=== PATIENT | male | born 1965 | race Caucasian/White ===

== ENCOUNTER 2017-06-19 12:52 | Inpatient (IN) | payer MEDICAID ==
[2017-06-19] MEDS ORDERED: METOPROLOL TARTRATE PF/INJ 5 MG/5 ML SDV IV ONE ×2 (13:12→17:00)
[2017-06-19 14:21] LABS: ABSOLUTE LYMPHOCYTES (AUTO) 0.8 10^3/uL (0.5-4.7); ABSOLUTE MONOCYTES (AUTO) 0.5 10^3/uL (0.1-1.4); ABSOLUTE NEUT (AUTO) 6.6 10^3/uL (1.7-8.2); BASOPHILS % (AUTO) 0.6 % (0-2); EOSINOPHILS % (AUTO) 0.1 % (0-6); HEMATOCRIT 42.2 % (37.9-51.0); HEMOGLOBIN 14.4 g/dL (13.5-17.0); MEAN CORPUSCULAR HEMOGLOBIN 31.6 pg (27.0-33.4); MEAN CORPUSCULAR VOLUME 93 fl (80-97); MONOCYTES % (AUTO) 6.7 % (3-13); RED BLOOD COUNT 4.55 10^6/uL (4.35-5.55); RED CELL DISTRIBUTION WIDTH 13.5 % (11.5-14.0); SEGMENTED NEUTROPHILS % (AUTO) 82.6 % (42-78); WHITE BLOOD COUNT 7.9 10^3/uL (4.0-10.5)
[2017-06-19] MEDS ORDERED: DILTIAZEM HCL/D5W 125 ML IV PRN ×2 (14:22→15:56)
--- NOTE | 2017-06-19 14:29 | ER Document Report ---
ED Respiratory Problem - General Chief Complaint: Shortness Of Breath Stated Complaint: SHORTNESS OF BREATH Time Seen by Provider: 06/19/17 13:00 Mode of Arrival: Medic Information source: Patient Notes: Patient is a 52 year old male with a history of A. fib, hypertension, recent pneumonias who presents to the ER today for cough 4 days with shortness of breath that began this morning. Patient's last pneumonia was in January 2017. He does have a pacemaker placed in 2010. He states that he has not taken any of his medications including metoprolol, diltiazem and Xarelto since yesterday morning. He denies any fevers or chills that he is noticed. He has no primary care provider as he just moved down here from [place]. TRAVEL OUTSIDE OF THE [place] IN LAST 30 DAYS: No - Related Data Allergies/Adverse Reactions: cyclobenzaprine Allergy (Verified 06/19/17 13:25) Past Medical History - General Information source: Patient - Social History Smoking Status: Former Smoker Patient has suicidal ideation: No Patient has homicidal ideation: No - Past Medical History Cardiac Medical History: Reports: Hx Atrial Fibrillation, Hx Congestive Heart Failure, Hx Hypertension Renal/ Medical History: Denies: Hx Peritoneal Dialysis Past Surgical History: Reports: Hx Abdominal Surgery - gastric bypass Review of Systems - Review of Systems Constitutional: No symptoms reported EENT: No symptoms reported Cardiovascular: See HPI Respiratory: See HPI Gastrointestinal: No symptoms reported Genitourinary: No symptoms reported Male Genitourinary: No symptoms reported Musculoskeletal: No symptoms reported Skin: No symptoms reported Hematologic/Lymphatic: No symptoms reported Neurological/Psychological: No symptoms reported Physical Exam - Vital signs Vitals: Resp Pulse Ox 17 96 06/19/17 12:59 06/19/17 12:59 - Notes Notes: PHYSICAL EXAMINATION: GENERAL: On oxygen, short of breath, morbidly obese, in mild acute distress. HEAD: Atraumatic, normocephalic. EYES: Pupils equal round and reactive to light, extraocular movements intact, sclera anicteric, conjunctiva are normal. NECK: Normal range of motion, supple without lymphadenopathy LUNGS: mild expiratory wheezes to left upper and lower lobes, no rales or rhonchi. HEART: Irregularly irregular, without murmurs ABDOMEN: Soft, no tenderness. No guarding, no rebound BACK: no vertebral tenderness, normal ROM GI/: no CVA tenderness EXTREMITIES: Normal range of motion, no pitting edema. No cyanosis. NEUROLOGICAL: Cranial nerves grossly intact. Normal sensory/motor exams. PSYCH: Normal mood, normal affect. SKIN: Warm, Dry, normal turgor, no rashes or lesions noted Course - Re-evaluation Re-evalutation: 06/19/17 15:21 Dose of IV metoprolol did help for a little while, pulse went down to the 120s from 150s. Patient now on diltiazem drip. X-ray does reveal left lower lobe pneumonia. Levaquin was ordered IV. Dr. Caballero, hospitalist is agreed to admit patient at this time for A. fib with RVR and pneumonia. - Vital Signs Vital signs: Temp Pulse Resp BP Pulse Ox 100.2 F 122 H 17 141/95 H 95 06/19/17 13:34 06/19/17 13:41 06/19/17 15:01 06/19/17 15:01 06/19/17 15:01 - Laboratory Result Diagrams: 06/19/17 14:00 06/19/17 14:00 Laboratory results interpreted by me: 06/19/17 06/19/17 06/19/17 14:00 14:00 14:00 Plt Count 128 L Seg Neutrophils % 82.6 H Lymphocytes % 10.0 L PT 15.7 H Sodium 133.7 L Potassium 3.5 L Glucose 137 H Total Bilirubin 1.7 H Direct Bilirubin 0.7 H AST 75 H Creatine Kinase 1372 H Albumin 3.4 L Critical Care Note - Critical Care Note Total time excluding time spent on procedures (mins): 45 - 45 minutes spent in critical care time with patient, consulted with attending, speaking with family , placing orders and evaluating tests and labs. Discharge - Discharge Clinical Impression: Atrial fibrillation with RVR Pneumonia Qualifiers: Pneumonia type: due to unspecified organism Laterality: left Lung location: lower lobe of lung Qualified Code(s): J18.1 - Lobar pneumonia, unspecified organism Condition: Stable Disposition: ADMITTED INPATIENT Admitting Provider: Hospitalist Unit Admitted: [facility]
[2017-06-19 14:35] LABS: PROTHROMBIN TIME 15.7 SEC (11.4-15.4)
--- NOTE | 2017-06-19 14:35 | RADIOLOGY REPORT (SQ) ---
EXAM DESCRIPTION: CHEST SINGLE VIEW COMPLETED DATE/TIME: 06/19/2017 1:49 pm REASON FOR STUDY: bed 15 sepsis protocol COMPARISON: None. EXAM PARAMETERS: NUMBER OF VIEWS: One view. TECHNIQUE: Single frontal radiographic view of the chest acquired. RADIATION DOSE: NA LIMITATIONS: Patient has made a shallow inspiration. FINDINGS: LUNGS AND PLEURA: Patchy increased density is identified in the left lower lung field cons istent with a patchy pneumonic infiltrate. Remaining lung cabral are clear. No pleural effusions ar e identified. MEDIASTINUM AND HILAR STRUCTURES: No masses. Contour normal. HEART AND VASCULAR STRUCTURES: Cardiac silhouette appears mildly enlarged. BONES: No acute findings. HARDWARE: Single chamber transvenous pacemaker is identified. OTHER: No other significant finding. IMPRESSION: Patchy increased density in the left lower lung field consistent with a patchy pneumonic infiltrate. Remaining lung cabral are clear. Other findings as noted above TECHNICAL DOCUMENTATION: JOB ID: [id number]
[2017-06-19] MEDS ORDERED: ALBUTEROL SULFATE 0.083% NEB 2.5 MG/3 ML AMPUL NEB ONE (14:40)
[2017-06-19 14:41] LABS: ALANINE AMINOTRANSFERASE 42 U/L (21-72); ALBUMIN 3.4 g/dL (3.5-5.0); ALKALINE PHOSPHATASE 57 U/L (38-126); ANION GAP 13 (5-19); ASPARTATE AMINO TRANSFERASE 75 U/L (17-59); BILIRUBIN,DIRECT 0.7 mg/dL (0.0-0.4); BILIRUBIN,TOTAL 1.7 mg/dL (0.2-1.3); BLOOD UREA NITROGEN 14 mg/dL (7-20); CALCIUM 8.6 mg/dL (8.4-10.2); CARBON DIOXIDE 22 mmol/L (22-30); CHLORIDE 99 mmol/L (98-107); CREATINE KINASE 1372 U/L (55-170); CREATININE RESULT 0.86 mg/dL (0.52-1.25); GLUCOSE 137 mg/dL (75-110); POTASSIUM 3.5 mmol/L (3.6-5.0); SODIUM 133.7 mmol/L (137-145); TOTAL PROTEIN 6.7 g/dL (6.3-8.2)
[2017-06-19 14:53] LABS: CREATINE KINASE MB 1.02 ng/mL (<4.55); TROPONIN I 0.014 ng/mL
[2017-06-19] MEDS ORDERED: LEVOFLOXACIN 500 MG/D5W RTU 100 ML IV SCH (15:00)
[2017-06-19 15:33] LABS: VENOUS BLOOD BASE EXCESS 0.9 mmol/L; VENOUS BLOOD HCO3 24.3 mmol/L (20-32); VENOUS BLOOD PCO2 35.3 mmHg (35-63); VENOUS BLOOD PH 7.46 (7.30-7.42)
[2017-06-19 15:45] LABS: APPEARANCE,URINE SLIGHTLY-CLOUDY; BILIRUBIN,URINE NEGATIVE (NEGATIVE); GLUCOSE, URINE NEGATIVE (NEGATIVE); KETONES,URINE TRACE mg/dL (NEGATIVE); LEUKOCYTE ESTERASE,URINE NEGATIVE (NEGATIVE); NITRITE,URINE NEGATIVE (NEGATIVE); PROTEIN,URINE 100 mg/dL (NEGATIVE); URINE SPECIFIC GRAVITY 1.026
[2017-06-19] MEDS ORDERED: IPRATROPIUM/ALBUTEROL 0.5-2.5 MG/3 ML AMPUL NEB PRN (15:50)
[2017-06-19] MEDS ORDERED: ACETAMINOPHEN 325 MG TABLET PO PRN (15:50)
[2017-06-19] MEDS ORDERED: GUAIFENESIN/CODEINE PHOS 100-10 MG/ 5 ML UDC PO PRN (15:57)
--- NOTE | 2017-06-19 16:09 | PDOC H&P ---
History of Present Illness Patient complains of: Shortness of breath, cough History of Present Illness: JERONIMO BAE JR is a 52 year old male with a history of atrial fibrillation, hypertension, recent pneumonias who presents to the ER today for cough 4 days with shortness of breath that began this morning. Patient's last pneumonia was in January 2017. He does have a pacemaker placed in 2010. He states that he has not taken any of his medications including metoprolol, diltiazem and Xarelto since yesterday morning. He denies any fevers or chills that he is noticed. He has no primary care provider as he just moved down here from [place]. He verbalizes no other complaints. Past Medical History Cardiac Medical History: Reports: Atrial Fibrillation, Congestive Heart Failure , Hypertension Pulmonary Medical History: Reports: None EENT Medical History: Reports: None Neurological Medical History: Reports: None Endocrine Medical History: Reports: None Renal/ Medical History: Reports: None Malignancy Medical History: Reports: None GI Medical History: Reports: None Musculoskeltal Medical History: Reports: None Skin Medical History: Reports: None Psychiatric Medical History: Reports: None Traumatic Medical History: Reports: None Hematology: Reports: None Infectious Medical History: Reports: None Past Surgical History Past Surgical History: Reports: None Social History Information Source: Patient Lives with: Family, Spouse/Significant other Smoking Status: Former Smoker Number of Years Smokin Frequency of Alcohol Use: Occasional Hx Recreational Drug Use: No Hx Prescription Drug Abuse: No - Advance Directive Resuscitation Status: Full Code Surrogate healthcare decision maker:: , Family History Family History: CAD, Hypertension Parental Family History Reviewed: Yes Children Family History Reviewed: Yes Sibling(s) Family History Reviewed.: Yes Medication/Allergy Allergies/Adverse Reactions: cyclobenzaprine Allergy (Verified 06/19/17 13:25) Review of Systems Constitutional: PRESENT: chills, fever(s). ABSENT: headache(s), weight gain, weight loss Eyes: ABSENT: visual disturbances Ears: ABSENT: hearing changes Cardiovascular: PRESENT: dyspnea on exertion, palpitations Respiratory: PRESENT: cough, dyspnea, sputum Gastrointestinal: ABSENT: abdominal pain, constipation, diarrhea, hematemesis, hematochezia, nausea, vomiting Genitourinary: ABSENT: dysuria, hematuria Musculoskeletal: ABSENT: joint swelling Integumentary: ABSENT: rash, wounds Neurological: ABSENT: abnormal gait, abnormal speech, confusion, dizziness, focal weakness, syncope Psychiatric: ABSENT: anxiety, depression, homidical ideation, suicidal ideation Endocrine: ABSENT: cold intolerance, heat intolerance, polydipsia, polyuria Hematologic/Lymphatic: ABSENT: easy bleeding, easy bruising Physical Exam Vital Signs: Temp Pulse Resp BP Pulse Ox 100.2 F 122 H 17 141/95 H 95 06/19/17 13:34 06/19/17 13:41 06/19/17 15:01 06/19/17 15:01 06/19/17 15:01 Intake & Output 06/18/17 06/19/17 06/20/17 06:59 06:59 06:59 Weight 147.418 kg General appearance: PRESENT: no acute distress, morbidly obese, well-developed, well-nourished Head exam: PRESENT: atraumatic, normocephalic Eye exam: PRESENT: conjunctiva pink, EOMI, PERRLA. ABSENT: scleral icterus Ear exam: PRESENT: normal external ear exam Mouth exam: PRESENT: moist, tongue midline Neck exam: ABSENT: carotid bruit, JVD, lymphadenopathy, thyromegaly Respiratory exam: PRESENT: rhonchi - left lung field, unlabored, wheezes Cardiovascular exam: PRESENT: irregular rhythm, +S1, tachycardia Pulses: PRESENT: normal dorsalis pedis pul Vascular exam: PRESENT: normal capillary refill GI/Abdominal exam: PRESENT: normal bowel sounds, soft. ABSENT: distended, guarding, mass, organolmegaly, rebound, tenderness Rectal exam: PRESENT: deferred Extremities exam: PRESENT: full ROM. ABSENT: calf tenderness, clubbing, pedal edema Musculoskeletal exam: PRESENT: ambulatory, full ROM Neurological exam: PRESENT: alert, awake, oriented to person, oriented to place , oriented to time, oriented to situation, CN II-XII grossly intact. ABSENT: motor sensory deficit Psychiatric exam: PRESENT: appropriate affect, normal mood. ABSENT: homicidal ideation, suicidal ideation Skin exam: PRESENT: dry, intact, warm. ABSENT: cyanosis, rash Results Laboratory Results: 06/19/17 14:00 06/19/17 14:00 06/19/17 06/19/17 06/19/17 14:00 14:00 14:00 WBC 7.9 RBC 4.55 Hgb 14.4 Hct 42.2 MCV 93 MCH 31.6 MCHC 34.0 RDW 13.5 Plt Count 128 L Seg Neutrophils % 82.6 H Lymphocytes % 10.0 L Monocytes % 6.7 Eosinophils % 0.1 Basophils % 0.6 Absolute Neutrophils 6.6 Absolute Lymphocytes 0.8 Absolute Monocytes 0.5 Absolute Eosinophils 0.0 Absolute Basophils 0.0 Sodium 133.7 L Potassium 3.5 L Chloride 99 Carbon Dioxide 22 Anion Gap 13 BUN 14 Creatinine 0.86 Est GFR ( Amer) > 60 Est GFR (Non-Af Amer) > 60 Glucose 137 H Lactic Acid 1.5 Calcium 8.6 Total Bilirubin 1.7 H AST 75 H ALT 42 Alkaline Phosphatase 57 Total Protein 6.7 Albumin 3.4 L 06/19/17 06/19/17 14:00 14:00 Creatine Kinase 1372 H CK-MB (CK-2) 1.02 Troponin I 0.014 Impressions: Chest X-Ray 06/19/17 12:59 IMPRESSION: Patchy increased density in the left lower lung field consistent with a patchy pneumonic infiltrate. Remaining lung cabral are clear. Other findings as noted above Assessment & Plan - Diagnosis (1) Atrial fibrillation with RVR Plan: Patient has not taken his metoprolol, diltiazem or Xarelto for the last 2 days because of feeling he was placed on IV diltiazem drip he was given 1 bolus of IV Lopressor (2) Pneumonia Qualifiers: Pneumonia type: due to unspecified organism Laterality: left Lung location: lower lobe of lung Qualified Code(s): J18.1 - Lobar pneumonia, unspecified organism Is this a current diagnosis for this admission?: YesPlan: Started on IV broad-spectrum antibiotics, nebulizer treatments after blood cultures 2 were obtained sputum cultures ordered (3) Essential (primary) hypertension Is this a current diagnosis for this admission?: YesPlan: Continue current home medications he is normotensive (4) Morbid obesity with BMI of 40.0-44.9, adult Is this a current diagnosis for this admission?: YesPlan: Patient has been counseled to - Time Time Spent: 50 to 70 Minutes Critical Time spent with patient: 35 or more minutes Medications reviewed and adjusted accordingly: Yes
[2017-06-19] MEDS: IPRATROPIUM/ALBUTEROL 0.5-2.5 MG/3 ML AMPUL NEB SCH (16:40)
[2017-06-19] MEDS ORDERED: ENOXAPARIN SODIUM INJ 40 MG/0.4 ML DISP.SYRIN SUBCUT ONE (17:30)
[2017-06-19] MEDS: CEFTRIAXONE 1 GM/D5W RTU 1 GM/50 ML RTUPB IV SCH (18:22)
[2017-06-19] MEDS ORDERED: METOPROLOL TARTRATE PF/INJ 5 MG/5 ML SDV IV PRN (18:37)
[2017-06-19] MEDS ORDERED: DIGOXIN INJ 0.5 MG/2 ML AMPULE IV ONE (18:39)
--- NOTE | 2017-06-19 19:43 | PDOC CONSULTATION ---
Consultation Consult Date: 06/19/17 Attending physician:: JULIA IBARRA Consult reason:: Atrial fibrillation with rapid ventricular response History of Present Illness Admission Date/PCP: 06/19/17 15:50 Patient complains of: Dyspnea and palpitations History of Present Illness: JERONIMO BAE JR is a 52 year old male with a history of atrial fibrillation, hypertension, recent pneumonias who presents to the ER today for cough 4 days with shortness of breath that began this morning. Patient's last pneumonia was in January 2017. He does have a pacemaker placed in 2010. He states that he has not taken any of his medications including metoprolol, diltiazem and Xarelto since yesterday morning. He denies any fevers or chills that he is noticed. He has no primary care provider as he just moved down here from [place]. He verbalizes no other complaints. Patient does describe history of fever. He denied any dizziness or chest pain. Patient claims that he developed atrial fibrillation several years ago, soon after his gastric bypass surgery in 2010. Patient's at bedside. This history was confirmed and supplemented. This history is agreed with. Past Medical History Cardiac Medical History: Reports: Atrial Fibrillation, Congestive Heart Failure , Hypertension Pulmonary Medical History: Reports: None EENT Medical History: Reports: None Neurological Medical History: Reports: None Endocrine Medical History: Reports: None Renal/ Medical History: Reports: None Malignancy Medical History: Reports: None GI Medical History: Reports: None Musculoskeltal Medical History: Reports: None Skin Medical History: Reports: None Psychiatric Medical History: Reports: None Traumatic Medical History: Reports: None Hematology: Reports: None Infectious Medical History: Reports: None Past Surgical History Past Surgical History: Reports: None Social History Information Source: Patient Lives with: Family, Spouse/Significant other Smoking Status: Former Smoker Number of Years Smokin Frequency of Alcohol Use: Occasional Hx Recreational Drug Use: No Hx Prescription Drug Abuse: No - Advance Directive Resuscitation Status: Full Code Surrogate healthcare decision maker:: Patient's spouse Family History Family History: CAD, Hypertension Parental Family History Reviewed: Yes Children Family History Reviewed: Yes Sibling(s) Family History Reviewed.: Yes Medication/Allergy Home Medications: Allopurinol [Zyloprim 100 mg Tablet] 100 mg PO DAILY 06/19/17 Ascorbic Acid [Vitamin C] 500 mg PO DAILY 06/19/17 Calcium Citrate [Calcitrate] 200 mg PO DAILY 06/19/17 Cholecalciferol (Vitamin D3) [Vitamin D3] 1,000 unit PO DAILY 06/19/17 Cyanocobalamin (Vitamin B-12) [Vitamin B-12] 500 mcg PO DAILY 06/19/17 Diltiazem HCl [Cardizem 30 mg Tablet] 30 mg PO Q12 06/19/17 Ferrous Sulfate [Feosol 325 mg Tablet] 325 mg PO DAILY 06/19/17 Lisinopril [Prinivil 10 mg Tablet] 10 mg PO DAILY 06/19/17 Loratadine [Claritin 10 mg Tablet] 10 mg PO DAILY 06/19/17 Losartan/Hydrochlorothiazide [Hyzaar 50-12.5 Tablet] 1 tab PO DAILY 06/19/17 Metformin HCl [Glucophage] 500 mg PO BID 06/19/17 Methocarbamol [Robaxin 500 mg Tablet] 750 mg PO Q6HP PRN 06/19/17 Metoprolol Tartrate [Lopressor 100 mg Tablet] 100 mg PO Q12 06/19/17 Multivitamin [Tab-A-Mendel] 2 tab PO DAILY 06/19/17 Pantoprazole Sodium [Protonix] 40 mg PO DAILY 06/19/17 Ranitidine HCl [Zantac 150 mg Tablet] 150 mg PO BID 06/19/17 Rivaroxaban [Xarelto] 20 mg PO [id number] 06/19/17 Ropinirole HCl [Requip 2 mg Tablet] 2 mg PO QHS 06/19/17 Sennosides/Docusate Sodium [Sennalax-S Tablet] 1 tab PO QPMP PRN 06/19/17 Sertraline HCl [Zoloft 50 mg Tablet] 50 mg PO DAILY 06/19/17 Allergies/Adverse Reactions: cyclobenzaprine Allergy (Verified 06/19/17 13:25) Review of Systems Review of Systems: Please see history of present illness and past medical history as wall. Constitutional: Reports fever or chills reported. Head : No recent chronic headaches, recent head injury. Eyes: No recent eye pain, diplopia, redness, discharge, acute visual changes. Ears: No recent chronic ear pain, acute hearing loss, ear discharge. Oral cavity: No recent ulcerations, bleeding, oral cavity discomfort. Neck: No recent acute neck pain reported. Hematologic: No recent easy bruising or bleeding or hematologic malignancy reported. Lymphatic: No recent lymphatic malignancy, chronic lymphadenopathy reported yet Cardiovascular system review: See history of present illness. Respiratory system review: Recent cough with sputum production but no hemoptysis , blood clots in the lungs reported. Mild Shortness of breath on exertion Gastrointestinal system review: Negative for any recent acute or chronic abdominal pain, hematemesis, melena, recent change in bowel habits. Genitourinary system review: No recent acute or chronic hematuria, flank pain, UTI etc. reported. Skin system review: Negative for any recent abnormal bruising, no rash, no pruritus reported. Neurologic: No prior history of strokes, mini strokes, seizure disorder. Psychologic: No history of major psychosis or major depression reported. Musculoskeletal: Minor aches and pains reported. No acute joint swelling reported. Endocrine: No recent polyuria, polydipsia, recent heat or cold intolerance. Physical Exam Vital Signs: Temp Pulse Resp BP Pulse Ox 100.2 F 163 H 17 125/84 92 06/19/17 13:34 06/19/17 16:40 06/19/17 19:01 06/19/17 19:01 06/19/17 19:01 Exam: GENERAL: well-nourished and in no acute distress. Alert and oriented x3 HEAD: Atraumatic, normocephalic. EYES: Pupils equal round and reactive to light, extraocular movements intact, sclera anicteric, conjunctiva are normal. ENT: TMs normal, nares patent, oropharynx clear without exudates. Moist mucous membranes. No oral ulcerations or bleeding gums noted NECK: supple without lymphadenopathy. Trachea is central. No cervical or axillary lymphadenopathy noted. Carotids are 2+, JVD WNL LUNGS: Respiration seems nonlabored, no significant accessory muscle action noted. Breath sounds clear to auscultation bilaterally and equal noted. No wheezes rales or rhonchi noted. No significant dullness noted on percussion. CHEST: Palpation of the chest wall shows no significant chest wall tenderness. No other significant abnormalities noted. HEART: Marion [employer], No PSH, 1/6 MIKI aortic area, 1/6 camejo systolic murmur mitral area, no rubs, no gallops. ABDOMEN: Soft, no significant tenderness appreciated, normoactive bowel sounds. No guarding, no rebound. No rigidity noted . No masses appreciated. EXTREMITIES: Pedal pulses are 1-2+, no calf tenderness noted. No clubbing or cyanosis. 1+ pedal edema noted NEUROLOGICAL: Focused neurological exam showed no significant neurologic deficit. Normal speech, no focal weakness appreciated. PSYCH: Normal mood, normal affect. Judgment and insight within normal limits. SKIN: No significant ecchymosis, rash, ulcerations or signs of pruritus noted. MUSCULOSKELETAL EXAM: No significant joint swelling noted. Results EKG Comments: Atrial fibrillation with rapid ventricular response but no acute ST-T wave changes noted Impressions: Chest X-Ray 06/19/17 12:59 IMPRESSION: Patchy increased density in the left lower lung field consistent with a patchy pneumonic infiltrate. Remaining lung cabral are clear. Other findings as noted above Status: Image reviewed by ks - Chest x-ray showed cardiomegaly with single- chamber pacemaker and left basal pneumonia Assessment & Plan - Diagnosis (2) Essential (primary) hypertension Is this a current diagnosis for this admission?: Yes (3) Hyponatremia Is this a current diagnosis for this admission?: Yes (4) Morbid obesity with BMI of 40.0-44.9, adult Is this a current diagnosis for this admission?: Yes (5) Pneumonia Qualifiers: Pneumonia type: due to unspecified organism Laterality: left Lung location: lower lobe of lung Qualified Code(s): J18.1 - Lobar pneumonia, unspecified organism Is this a current diagnosis for this admission?: Yes (6) Congestive heart failure Qualifiers: Congestive heart failure type: unspecified congestive heart failure type Congestive heart failure chronicity: acute on chronic Qualified Code(s ): I50.9 - Heart failure, unspecified Is this a current diagnosis for this admission?: YesPlan: Patient seems to have CHF by clinical exam. Most likely acute on chronic precipitated by atrial fibrillation and pneumonia. Recommend low-dose diuretic therapy. Have ordered a 2D echo. Recommend salt and fluid restriction. Further adjustment of therapy will be performed after review of 2D echo. (7) Sleep apnea syndrome Qualifiers: Sleep apnea type: unspecified type Qualified Code(s): G47.30 - Sleep apnea, unspecified Is this a current diagnosis for this admission?: Yes - Notes Notes: Atrial fibrillation with RVR: Patient history suggest chronic atrial fibrillation. Based on [id number] score chronic anticoagulation is indicated this was explained to the patient. Patient is agreeable. Discussed a small increased risk of bleeding but on the balance benefits far exceeds the risk. Patient felt to be a satisfactory candidate for chronic anticoagulation. Patient has been on Xarelto would recommend continuing that. For rate control agree with Cardizem, beta-rosalie and digoxin therapy Hypertension: Reasonably well controlled. Blood pressure goal in this patient is 135/85 or less. This was discussed with the patient. Currently blood pressure under reasonable control. Better medication for this patient are MEG inhibitor/ARB/beta rosalie etc. discussed side effects of uncontrolled hypertension and also severe hypotension. Obesity: Patient has been recommended to lose weight. Pneumonia: Chest x-ray reviewed and symptoms suggest left-sided pneumonia. Continue antibiotic therapy. Hyponatremia: Probably related to pneumonia, possible CHF. CHF: Patient seems to have CHF by clinical exam. Most likely acute on chronic precipitated by atrial fibrillation and pneumonia. Recommend low-dose diuretic therapy. Have ordered a 2D echo. Recommend salt and fluid restriction. Further adjustment of therapy will be performed after review of 2D echo. Sleep apnea syndrome: Discussed association of sleep apnea with atrial fibrillation and also CHF. Recommend compliance with CPAP therapy. - Time Time Spent: 30 to 50 Minutes - CODE STATUS was discussed, patient remains full code. Surrogate decision-maker patient spouse. Multiple medical problems were addressed. More than 50% of the time spent coordinating care, discussing management plans with involved caregivers. Management plans discussed with involved personnels. Medical decision making was of moderate to high complexity , patient's has multiple comorbidities. Medications reviewed and adjusted accordingly: Yes
[2017-06-19] MEDS ORDERED: DILTIAZEM HCL/D5W 125 MG/125 ML RTUINJ IV PRN (22:23)
[2017-06-19] MEDS: FAMOTIDINE 20 MG TABLET PO SCH (22:33)
[2017-06-19] MEDS: GUAIFENESIN 600 MG TABLET.SA PO SCH (22:33)
[2017-06-20] MEDS: IPRATROPIUM/ALBUTEROL 0.5-2.5 MG/3 ML AMPUL NEB SCH ×3 (00:01→15:37)
[2017-06-20 06:33] LABS: ABSOLUTE LYMPHOCYTES (AUTO) 0.8 10^3/uL (0.5-4.7); ABSOLUTE MONOCYTES (AUTO) 0.5 10^3/uL (0.1-1.4); ABSOLUTE NEUT (AUTO) 4.5 10^3/uL (1.7-8.2); BASOPHILS % (AUTO) 0.4 % (0-2); EOSINOPHILS % (AUTO) 0.3 % (0-6); HEMATOCRIT 39.3 % (37.9-51.0); HEMOGLOBIN 13.4 g/dL (13.5-17.0); HGB HCT DIFFERENCE 0.9; LYMPHOCYTES % (AUTO) 13.1 % (13-45); MEAN CORPUSCULAR HEMOGLOBIN 31.9 pg (27.0-33.4); MEAN CORPUSCULAR HGB CONC 34.1 g/dL (32.0-36.0); MEAN CORPUSCULAR VOLUME 94 fl (80-97); MONOCYTES % (AUTO) 8.5 % (3-13); RED BLOOD COUNT 4.21 10^6/uL (4.35-5.55); RED CELL DISTRIBUTION WIDTH 13.1 % (11.5-14.0); SEGMENTED NEUTROPHILS % (AUTO) 77.7 % (42-78); WHITE BLOOD COUNT 5.8 10^3/uL (4.0-10.5)
[2017-06-20 06:39] LABS: ALANINE AMINOTRANSFERASE 48 U/L (21-72); ALBUMIN 3.1 g/dL (3.5-5.0); ALKALINE PHOSPHATASE 55 U/L (38-126); ANION GAP 12 (5-19); ASPARTATE AMINO TRANSFERASE 118 U/L (17-59); BILIRUBIN,DIRECT 0.7 mg/dL (0.0-0.4); BILIRUBIN,TOTAL 1.3 mg/dL (0.2-1.3); BLOOD UREA NITROGEN 12 mg/dL (7-20); CALCIUM 8.4 mg/dL (8.4-10.2); CARBON DIOXIDE 25 mmol/L (22-30); CHLORIDE 97 mmol/L (98-107); CREATININE RESULT 0.83 mg/dL (0.52-1.25); GLUCOSE 121 mg/dL (75-110); POTASSIUM 3.4 mmol/L (3.6-5.0); SODIUM 133.8 mmol/L (137-145); TOTAL PROTEIN 6.2 g/dL (6.3-8.2)
[2017-06-20] MEDS ORDERED: POTASSIUM CHLORIDE 10 MEQ TABLET.SA PO ONE (08:30)
[2017-06-20] MEDS ORDERED: ENOXAPARIN SODIUM INJ 40 MG/0.4 ML DISP.SYRIN SUBCUT SCH (10:00)
[2017-06-20] MEDS: FAMOTIDINE 20 MG TABLET PO SCH ×2 (10:44→21:33)
[2017-06-20] MEDS: GUAIFENESIN 600 MG TABLET.SA PO SCH ×2 (10:44→21:33)
[2017-06-20] MEDS: LEVOFLOXACIN 750 MG/D5W RTU 750 MG/150 ML RTUPB IV SCH (10:45)
--- NOTE | 2017-06-20 11:13 | XCELERA REPORT ---
[address] [address] Transthoracic Echocardiogram Report Name: JERONIMO BAE JR Age: 52 yrs Gender: Male : 1965 Patient Status: Inpatient Patient Location: [id number] Study Date: 06/20/2017 09:23 AM Height: 72 in Weight: 325 lb BSA: 2.6 m2 Procedure: A complete two-dimensional transthoracic echocardiogram was performed (2D, M-mode, spectral and color flow Doppler). The study was technically difficult with many images being suboptimal in quality. Reason For Study: Atrial fibrillation, cardiomegaly, CHF Ordering Physician: MANOJ LINARES Performed By: Angela Lofton Interpretation Summary The study was technically difficult with many images being suboptimal in quality. Left ventricular systolic function is low normal. LV diastolic function could not be adequately assessed due to atrial fibrilation. There is borderline concentric left ventricular hypertrophy. The left ventricle is mildly dilated. Not all wall segments were well visualized. Regional wall motion abnormalities cannot be excluded due to limited visualization. The right ventricle is mildly dilated. The right ventricle appears to be hypertrophied Right ventricular function cannot be assessed due to poor image quality. The right atrium is mildly dilated. The left atrium is severely dilated. There is a trace amount of mitral regurgitation There is no mitral valve stenosis. No aortic regurgitation is present. There is no aortic valve stenosis No tricuspid regurgitation. There is no tricuspid stenosis. There is no pericardial effusion. MMode/2D Measurements \T\ Calculations RVDd: 3.2 cm LVIDd: 5.8 cm FS: 29.0 % Ao root diam: 3.2 cm IVSd: 0.98 cm LVIDs: 4.1 cm EDV(Teich): 167.9 ml LVPWd: 0.96 cmESV(Teich): 75.6 ml Ao root area: 7.8 cm2 EF(Teich): 55.0 % LA dimension: 5.2 cm LVOT diam: 2.4 cm LVOT area: 4.5 cm2 Doppler Measurements \T\ Calculations MV E max angeles: MV P1/2t max angeles: Ao V2 max: LV V1 max P.0 cm/sec 79.5 cm/sec 136.8 cm/sec 4.1 mmHg MV P1/2t: 43.9 msec Ao max PG: LV V1 max: MVA(P1/2t): 5.0 cm2 7.5 mmHg 101.0 cm/sec MV dec slope: MARISA(V,D): 3.3 cm2 530.3 cm/sec2 PA V2 max: 109.7 cm/sec PA max P.8 mmHg Left Ventricle The left ventricle is mildly dilated. There is borderline concentric left ventricular hypertrophy. Left ventricular systolic function is low normal. LV diastolic function could not be adequately assessed due to atrial fibrilation. Not all wall segments were well visualized. Regional wall motion abnormalities cannot be excluded due to limited visualization. Right Ventricle The right ventricle is mildly dilated. The right ventricle appears to be hypertrophied. Right ventricular function cannot be assessed due to poor image quality. Atria The right atrium is mildly dilated. The left atrium is severely dilated. Interarterial septum not well visualized and not well dopplered. Cannot comment on ASD/PFO presence. Mitral Valve The mitral valve is not well visualized. There is no mitral valve stenosis. There is a trace amount of mitral regurgitation. Aortic Valve The aortic valve is not well visualized secondary to technical limitations. There is no aortic valve stenosis. No aortic regurgitation is present. Tricuspid Valve The tricuspid valve is not well visualized, but is grossly normal. There is no tricuspid stenosis. No tricuspid regurgitation. Pulmonic Valve The pulmonic valve is not well visualized. Great Vessels The aortic root is not well visualized. The inferior vena cava was not visualized. Effusions There is no pericardial effusion. : MANOJ LINARES > Manoj Linares
[2017-06-20] MEDS ORDERED: SENNOSIDES/DOCUSATE 8.6-50 MG 1 EACH TABLET PO PRN (12:44)
[2017-06-20] MEDS ORDERED: METHOCARBAMOL 750 MG TABLET PO PRN (12:44)
[2017-06-20] MEDS ORDERED: METOPROLOL TARTRATE PF/INJ 5 MG/5 ML SDV IV PRN (12:52)
[2017-06-20] MEDS ORDERED: DILTIAZEM HCL 30 MG TABLET PO ONE (14:00)
[2017-06-20] MEDS ORDERED: METOPROLOL TARTRATE 100 MG TABLET PO ONE (14:00)
[2017-06-20] MEDS: METHYLPREDNISOLONE INJ 125 MG/2 ML SDV IV SCH ×2 (14:58→21:34)
--- NOTE | 2017-06-20 16:37 | PDOC PROGRESS REPORT ---
Subjective Progress Note for:: 06/20/17 Subjective:: Patient was seen on morning rounds Physical Exam Vital Signs: Temp Pulse Resp BP Pulse Ox 97.7 F 95 18 121/76 100 06/20/17 15:46 06/20/17 16:00 06/20/17 15:46 06/20/17 16:00 06/20/17 15:46 Intake & Output 06/19/17 06/20/17 06/21/17 06:59 06:59 06:59 Intake Total 765 Output Total 1300 Balance -535 Weight 156.7 kg General appearance: PRESENT: no acute distress, morbidly obese, well-developed, well-nourished Head exam: PRESENT: atraumatic, normocephalic Eye exam: PRESENT: conjunctiva pink, EOMI, PERRLA. ABSENT: scleral icterus Ear exam: PRESENT: normal external ear exam Mouth exam: PRESENT: moist, tongue midline Neck exam: ABSENT: carotid bruit, JVD, lymphadenopathy, thyromegaly Respiratory exam: PRESENT: crackles, decreased breath sounds, symmetrical, unlabored. ABSENT: rales, rhonchi, wheezes Cardiovascular exam: PRESENT: irregular rhythm, +S1, +S2 Pulses: PRESENT: normal dorsalis pedis pul Vascular exam: PRESENT: normal capillary refill GI/Abdominal exam: PRESENT: normal bowel sounds, soft. ABSENT: distended, guarding, mass, organolmegaly, rebound, tenderness Rectal exam: PRESENT: deferred Extremities exam: PRESENT: full ROM. ABSENT: calf tenderness, clubbing, pedal edema Neurological exam: PRESENT: alert, awake, oriented to person, oriented to place , oriented to time, oriented to situation, CN II-XII grossly intact. ABSENT: motor sensory deficit Psychiatric exam: PRESENT: appropriate affect, normal mood. ABSENT: homicidal ideation, suicidal ideation Skin exam: PRESENT: dry, intact, warm. ABSENT: cyanosis, rash Results Laboratory Results: 06/20/17 05:11 06/20/17 05:11 06/20/17 06/20/17 05:11 05:11 WBC 5.8 RBC 4.21 L Hgb 13.4 L Hct 39.3 MCV 94 MCH 31.9 MCHC 34.1 RDW 13.1 Plt Count 99 L Seg Neutrophils % 77.7 Lymphocytes % 13.1 Monocytes % 8.5 Eosinophils % 0.3 Basophils % 0.4 Absolute Neutrophils 4.5 Absolute Lymphocytes 0.8 Absolute Monocytes 0.5 Absolute Eosinophils 0.0 Absolute Basophils 0.0 Sodium 133.8 L Potassium 3.4 L Chloride 97 L Carbon Dioxide 25 Anion Gap 12 BUN 12 Creatinine 0.83 Est GFR ( Amer) > 60 Est GFR (Non-Af Amer) > 60 Glucose 121 H Calcium 8.4 Total Bilirubin 1.3 AST 118 H ALT 48 Alkaline Phosphatase 55 Total Protein 6.2 L Albumin 3.1 L 06/20/17 05:11 NT-Pro-B Natriuret Pep 376 Impressions: Chest X-Ray 06/19/17 12:59 IMPRESSION: Patchy increased density in the left lower lung field consistent with a patchy pneumonic infiltrate. Remaining lung cabral are clear. Other findings as noted above Assessment & Plan - Diagnosis (1) Atrial fibrillation with RVR Plan: Patient is now rate controlled (2) Pneumonia Qualifiers: Pneumonia type: due to unspecified organism Laterality: left Lung location: lower lobe of lung Qualified Code(s): J18.1 - Lobar pneumonia, unspecified organism Is this a current diagnosis for this admission?: YesPlan: Started on IV broad-spectrum antibiotics, nebulizer treatments after blood cultures 2 were obtained sputum cultures ordered (3) Essential (primary) hypertension Is this a current diagnosis for this admission?: YesPlan: Continue current home medications he is normotensive (4) Morbid obesity with BMI of 40.0-44.9, adult Is this a current diagnosis for this admission?: YesPlan: Patient has been counseled to (5) Hyponatremia Is this a current diagnosis for this admission?: YesPlan: Most likely secondary to poor oral intake - Time Time Spent with patient: 25-34 minutes Critical Time spent with patient: 15-24 minutes Medications reviewed and adjusted accordingly: Yes Anticipated discharge: Home
[2017-06-20] MEDS: CEFTRIAXONE 1 GM/D5W RTU 1 GM/50 ML RTUPB IV SCH (17:59)
[2017-06-20] MEDS: METFORMIN HCL 500 MG TABLET PO SCH (18:00)
[2017-06-20] MEDS ORDERED: (PENDING PHARMACY ID) (Ranitidine Hcl [Zantac 150 Mg Tablet] 150 MG) PO SCH (18:00)
--- NOTE | 2017-06-20 19:38 | PDOC PROGRESS REPORT ---
Subjective Progress Note for:: 06/20/17 Subjective:: Patient seems to be doing better with gradual improvement. Pt is denying any chest arm or neck discomfort. Patient denying any PND, orthopnea. Patient denied any sustained palpitations, dizziness, syncope, near syncope. Patient denying any fever chills. Patient denying any other significant discomfort. Patient is maintaining atrial fibrillation. Review of systems: Rest review of systems negative. Medications: Medications have been reviewed. Physical Exam Vital Signs: Temp Pulse Resp BP Pulse Ox 97.7 F 95 18 121/76 100 06/20/17 15:46 06/20/17 16:00 06/20/17 15:46 06/20/17 16:01 06/20/17 15:46 Intake & Output 06/19/17 06/20/17 06/21/17 06:59 06:59 06:59 Intake Total 765 1085 Output Total 1300 1800 Balance -535 -715 Weight 156.7 kg Exam: GENERAL: well-nourished and in no acute distress. Alert and oriented x3 HEAD: Atraumatic, normocephalic. EYES: Pupils equal round and reactive to light, extraocular movements intact, sclera anicteric, conjunctiva are normal. ENT: TMs normal, nares patent, oropharynx clear without exudates. Moist mucous membranes. No oral ulcerations or bleeding gums noted NECK: supple without lymphadenopathy. Trachea is central. No cervical or axillary lymphadenopathy noted. Carotids are 2+, JVD WNL LUNGS: Respiration seems nonlabored, no significant accessory muscle action noted. Bibasilar wheezes rales or rhonchi noted left more than right, no significant dullness noted on percussion. CHEST: Palpation of the chest wall shows no significant chest wall tenderness. No other significant abnormalities noted. HEART: [place] [employer], No PSH, 1/6 MIKI aortic area, 1/6 camejo systolic murmur mitral area, no rubs, no gallops. ABDOMEN: Soft, no significant tenderness appreciated, normoactive bowel sounds. No guarding, no rebound. No rigidity noted . No masses appreciated. EXTREMITIES: Pedal pulses are 1-2+, no calf tenderness noted. No clubbing or cyanosis. 1+ pedal edema noted NEUROLOGICAL: Focused neurological exam showed no significant neurologic deficit. Normal speech, no focal weakness appreciated. PSYCH: Normal mood, normal affect. Judgment and insight within normal limits. SKIN: No significant ecchymosis, rash, ulcerations or signs of pruritus noted. MUSCULOSKELETAL EXAM: No significant joint swelling noted. Results Laboratory Results: 06/20/17 05:11 06/20/17 05:11 06/20/17 06/20/17 05:11 05:11 WBC 5.8 RBC 4.21 L Hgb 13.4 L Hct 39.3 MCV 94 MCH 31.9 MCHC 34.1 RDW 13.1 Plt Count 99 L Seg Neutrophils % 77.7 Lymphocytes % 13.1 Monocytes % 8.5 Eosinophils % 0.3 Basophils % 0.4 Absolute Neutrophils 4.5 Absolute Lymphocytes 0.8 Absolute Monocytes 0.5 Absolute Eosinophils 0.0 Absolute Basophils 0.0 Sodium 133.8 L Potassium 3.4 L Chloride 97 L Carbon Dioxide 25 Anion Gap 12 BUN 12 Creatinine 0.83 Est GFR ( Amer) > 60 Est GFR (Non-Af Amer) > 60 Glucose 121 H Calcium 8.4 Total Bilirubin 1.3 AST 118 H ALT 48 Alkaline Phosphatase 55 Total Protein 6.2 L Albumin 3.1 L 06/20/17 05:11 NT-Pro-B Natriuret Pep 376 EKG Comments: Echocardiogram results reviewed with the patient. Overall LVEF felt to be well preserved. Right ventricle noted to be enlarged. Pulmonary hypertension noted. Impressions: Chest X-Ray 06/19/17 12:59 IMPRESSION: Patchy increased density in the left lower lung field consistent with a patchy pneumonic infiltrate. Remaining lung cabral are clear. Other findings as noted above Assessment & Plan - Diagnosis (2) Essential (primary) hypertension Is this a current diagnosis for this admission?: Yes (3) Hyponatremia Is this a current diagnosis for this admission?: Yes (4) Morbid obesity with BMI of 40.0-44.9, adult Is this a current diagnosis for this admission?: Yes (5) Pneumonia Qualifiers: Pneumonia type: due to unspecified organism Laterality: left Lung location: lower lobe of lung Qualified Code(s): J18.1 - Lobar pneumonia, unspecified organism Is this a current diagnosis for this admission?: Yes (6) Congestive heart failure Qualifiers: Congestive heart failure type: unspecified congestive heart failure type Congestive heart failure chronicity: acute on chronic Qualified Code(s ): I50.9 - Heart failure, unspecified Is this a current diagnosis for this admission?: Yes (7) Sleep apnea syndrome Qualifiers: Sleep apnea type: unspecified type Qualified Code(s): G47.30 - Sleep apnea, unspecified Is this a current diagnosis for this admission?: Yes - Notes Notes: 2D echo results discussed. Patient questions answered. Lasix ordered CPAP therapy ordered Rhythm strips reviewed. Atrial fibrillation with RVR: Heart rate seems reasonably well controlled.. Based on [id number] score chronic anticoagulation is indicated this was explained to the patient. Patient is agreeable. Discussed a small increased risk of bleeding but on the balance benefits far exceeds the risk. Patient felt to be a satisfactory candidate for chronic anticoagulation. Patient has been started on Xarelto. Continue Cardizem beta-rosalie and diltiazem. Hypertension: Reasonably well controlled. Blood pressure goal in this patient is 135/85 or less. This was discussed with the patient. Currently blood pressure under reasonable control. Better medication for this patient are MEG inhibitor/ARB/beta rosalie etc. discussed side effects of uncontrolled hypertension and also severe hypotension. Obesity: Patient has been recommended to lose weight. Pneumonia: Chest x-ray reviewed and symptoms suggest left-sided pneumonia. Continue antibiotic therapy. Symptomatically patient is improving. Hyponatremia: Probably related to pneumonia, possible CHF. Currently is stable. CHF: Patient seems to have CHF by clinical exam. Most likely acute on chronic precipitated by atrial fibrillation and pneumonia. Recommend low-dose diuretic therapy. Have started patient on Lasix 20 mg p.o. daily. Feel that patient predominantly has diastolic and right-sided heart failure. BNP is normal but still feels patient has CHF. This is based on clinical exam and also chest x- ray findings. Sleep apnea syndrome: Discussed association of sleep apnea with atrial fibrillation and also CHF. Patient did not bring his CPAP machine. Have ordered nightly CPAP at 12 cm of water. - Time Time with patient: Greater than 35 minutes - CODE STATUS was discussed, patient remains full code. Surrogate decision-maker unchanged. Multiple medical problems were addressed. More than 50% of the time spent coordinating care, discussing management plans with involved caregivers. Management plans discussed with involved personnels. Medical decision making was of moderate to high complexity, patient's has multiple comorbidities. Medications reviewed and adjusted accordingly: Yes
[2017-06-20] MEDS: DILTIAZEM HCL 30 MG TABLET PO SCH (21:33)
[2017-06-20] MEDS: METOPROLOL TARTRATE 100 MG TABLET PO SCH (21:34)
[2017-06-20] MEDS ORDERED: ROPINIROLE HCL 2 MG TABLET PO SCH (22:00)
[2017-06-21] MEDS: IPRATROPIUM/ALBUTEROL 0.5-2.5 MG/3 ML AMPUL NEB SCH ×2 (00:10→08:32)
[2017-06-21] MEDS: METHYLPREDNISOLONE INJ 125 MG/2 ML SDV IV SCH (05:45)
[2017-06-21] MEDS ORDERED: LANSOPRAZOLE 30 MG TAB.RAP.DR PO SCH (06:00)
--- NOTE | 2017-06-21 06:03 | EKG REPORT ---
SEVERITY:- ABNORMAL ECG - ATRIAL FIBRILLATION, V-RATE [id number] : Confirmed by: Fadia Stinson MD 21-Jun-2017 06:03:24
[2017-06-21] MEDS ORDERED: RIVAROXABAN 10 MG TABLET PO SCH (08:00)
[2017-06-21] MEDS: GUAIFENESIN 600 MG TABLET.SA PO SCH (09:19)
[2017-06-21] MEDS: METOPROLOL TARTRATE 100 MG TABLET PO SCH (09:20)
[2017-06-21] MEDS: METFORMIN HCL 500 MG TABLET PO SCH (09:21)
[2017-06-21] MEDS: FAMOTIDINE 20 MG TABLET PO SCH (09:22)
[2017-06-21] MEDS: DILTIAZEM HCL 30 MG TABLET PO SCH (09:22)
[2017-06-21] MEDS: LEVOFLOXACIN 750 MG/D5W RTU 750 MG/150 ML RTUPB IV SCH (09:23)
[2017-06-21] MEDS ORDERED: FERROUS SULFATE 325 MG TABLET PO SCH (10:00)
[2017-06-21] MEDS ORDERED: LORATADINE 10 MG TABLET PO SCH (10:00)
[2017-06-21] MEDS ORDERED: MULTIVITAMIN TABLET PO SCH (10:00)
[2017-06-21] MEDS ORDERED: LISINOPRIL 10 MG TABLET PO SCH (10:00)
[2017-06-21] MEDS ORDERED: (PENDING PHARMACY ID) (Losartan/Hydrochlorothiazide [Hyzaar 50-12.5 Tablet] 1 TAB) PO SCH (10:00)
[2017-06-21] MEDS ORDERED: FUROSEMIDE 40 MG TABLET PO SCH (10:00)
[2017-06-21] MEDS ORDERED: HYDROCHLOROTHIAZIDE 12.5 MG CAPSULE PO SCH (10:00)
[2017-06-21] MEDS ORDERED: SERTRALINE HCL 50 MG TABLET PO SCH (10:00)
[2017-06-21] MEDS ORDERED: LOSARTAN POTASSIUM 50 MG TABLET PO SCH (10:00)
[2017-06-21] MEDS ORDERED: ALLOPURINOL 100 MG TABLET PO SCH (10:00)
[2017-06-21 12:12] VITALS: BP 130/92
--- NOTE | 2017-06-21 15:44 | PDOC DISCHARGE SUMMARY ---
General - Admit/Disc Date/PCP Admission Date/Primary Care Provider: 06/19/17 15:50 Discharge Date: 06/21/17 - Discharge Diagnosis (1) Atrial fibrillation with RVR Summary: Controlled on metoprolol and cardiazem. He is also on xarelto (2) Pneumonia Is this a current diagnosis for this admission?: YesSummary: LEvaquin 750 mg daily for the next 7 days (3) Essential (primary) hypertension Is this a current diagnosis for this admission?: YesSummary: Continue current medications he is normotensive (4) Morbid obesity with BMI of 40.0-44.9, adult Is this a current diagnosis for this admission?: YesSummary: Counseled (5) Hyponatremia Is this a current diagnosis for this admission?: YesSummary: Improved with increase hydration - Additional Information Resuscitation Status: Full Code Discharge Diet: Diabetic Discharge Activity: Activity As Tolerated, Balance Activity w/Rest Home Medications: Allopurinol [Zyloprim 100 mg Tablet] 100 mg PO DAILY 06/19/17 Ascorbic Acid [Vitamin C] 500 mg PO DAILY 06/19/17 Calcium Citrate [Calcitrate] 200 mg PO DAILY 06/19/17 Cholecalciferol (Vitamin D3) [Vitamin D3] 1,000 unit PO DAILY 06/19/17 Cyanocobalamin (Vitamin B-12) [Vitamin B-12] 500 mcg PO DAILY 06/19/17 Diltiazem HCl [Cardizem 30 mg Tablet] 30 mg PO Q12 06/19/17 Ferrous Sulfate [Feosol 325 mg Tablet] 325 mg PO DAILY 06/19/17 Lisinopril [Prinivil 10 mg Tablet] 10 mg PO DAILY 06/19/17 Loratadine [Claritin 10 mg Tablet] 10 mg PO DAILY 06/19/17 Losartan/Hydrochlorothiazide [Hyzaar 50-12.5 Tablet] 1 tab PO DAILY 06/19/17 Metformin HCl [Glucophage] 500 mg PO BID 06/19/17 Methocarbamol [Robaxin 500 mg Tablet] 750 mg PO Q6HP PRN 06/19/17 Metoprolol Tartrate [Lopressor 100 mg Tablet] 100 mg PO Q12 06/19/17 Multivitamin [Tab-A-Mendel] 2 tab PO DAILY 06/19/17 Pantoprazole Sodium [Protonix] 40 mg PO DAILY 06/19/17 Ranitidine HCl [Zantac 150 mg Tablet] 150 mg PO BID 06/19/17 Rivaroxaban [Xarelto] 20 mg PO [id number] 06/19/17 Ropinirole HCl [Requip 2 mg Tablet] 2 mg PO QHS 06/19/17 Sennosides/Docusate Sodium [Sennalax-S Tablet] 1 tab PO QPMP PRN 06/19/17 Sertraline HCl [Zoloft 50 mg Tablet] 50 mg PO DAILY 06/19/17 Acetaminophen [Tylenol 325 mg Tablet] 650 mg PO Q4HP PRN tablet 06/21/17 Guaifenesin [Mucinex Sr 600 mg Tablet.sa] 1,200 mg PO Q12 tablet.sa 06/21/17 Guaifenesin/Codeine Phos [Robitussin-AC Liquid 5 ml Udcup] 5 ml PO QIDP PRN # 120 ml 06/21/17 Levofloxacin [Levaquin 750 mg Tablet] 750 mg PO DAILY #7 tablet 06/21/17 Prednisone [Deltasone] 20 mg PO BID #10 tablet 06/21/17 Rivaroxaban [Xarelto] 20 mg PO DAILY #30 tablet 06/21/17 History of Present Illness Patient complains of: Cough, shortness of breath and palpitations History of Present Illness: JERONIMO BAE JR is a 52 year old male with a history of atrial fibrillation, hypertension, recent pneumonias who presents to the ER today for cough 4 days with shortness of breath that began this morning. Patient's last pneumonia was in January 2017. He does have a pacemaker placed in 2010. He states that he has not taken any of his medications including metoprolol, diltiazem and Xarelto since yesterday morning. He denies any fevers or chills that he is noticed. He has no primary care provider as he just moved down here from [place]. He verbalizes no other complaints. Hospital Course Hospital Course: Patient was admitted to the [facility] on IV diltiazem drip. He was restarted on his oral metoprolol and diltiazem. His rate was controlled. He was also restarted on his Xarelto. Cardiology, Dr. Salmeron, saw the patient in consult. Echocardiogram was done which showed low normal systolic ejection fraction and no valvular disorders. Cough Improved with IV steroids. He was able to be weaned off to room air. Physical Exam Vital Signs: Temp Pulse Resp BP Pulse Ox 97.5 F 91 18 130/92 H 96 06/21/17 12:02 06/21/17 12:02 06/21/17 12:02 06/21/17 12:02 06/21/17 12:02 Intake & Output 06/20/17 06/21/17 06/22/17 06:59 06:59 06:59 Intake Total 765 1540 300 Output Total 1300 1800 Balance -535 -260 300 Weight 156.7 kg 156.6 kg 156.6 kg General appearance: PRESENT: no acute distress, morbidly obese, well-developed, well-nourished Head exam: PRESENT: atraumatic, normocephalic Eye exam: PRESENT: conjunctiva pink, EOMI, PERRLA. ABSENT: scleral icterus Ear exam: PRESENT: normal external ear exam Mouth exam: PRESENT: moist, tongue midline Neck exam: ABSENT: carotid bruit, JVD, lymphadenopathy, thyromegaly Respiratory exam: PRESENT: crackles - left base, symmetrical, unlabored Cardiovascular exam: PRESENT: RRR. ABSENT: diastolic murmur, rubs, systolic murmur Pulses: PRESENT: normal dorsalis pedis pul Vascular exam: PRESENT: normal capillary refill GI/Abdominal exam: PRESENT: normal bowel sounds, soft. ABSENT: distended, guarding, mass, organolmegaly, rebound, tenderness Rectal exam: PRESENT: deferred Extremities exam: PRESENT: full ROM. ABSENT: calf tenderness, clubbing, pedal edema Neurological exam: PRESENT: alert, awake, oriented to person, oriented to place , oriented to time, oriented to situation, CN II-XII grossly intact. ABSENT: motor sensory deficit Psychiatric exam: PRESENT: appropriate affect, normal mood. ABSENT: homicidal ideation, suicidal ideation Skin exam: PRESENT: dry, intact, warm. ABSENT: cyanosis, rash Results Laboratory Results: 06/20/17 05:11 06/20/17 05:11 06/20/17 05:11 NT-Pro-B Natriuret Pep 376 Impressions: Chest X-Ray 06/19/17 12:59 IMPRESSION: Patchy increased density in the left lower lung field consistent with a patchy pneumonic infiltrate. Remaining lung cabral are clear. Other findings as noted above Qualifiers PATEINT BEING DISCHARGED WITH ANY OF THE FOLLOWING DIAGNOSIS?: No Plan Discharge Plan: Home with family Time Spent: Less than 30 Minutes
--- NOTE | 2017-06-21 19:25 | PDOC PROGRESS REPORT ---
Subjective Progress Note for:: 06/21/17 Subjective:: Patient seems to be doing better with gradual improvement. Pt is denying any chest arm or neck discomfort. Patient denying any PND, orthopnea. Patient denied any sustained palpitations, dizziness, syncope, near syncope. Patient denying any fever chills. Patient denying any other significant discomfort. Patient is maintaining atrial fibrillation. Heart rate seems relatively controlled. His pedal edema has improved. Dyspnea has improved. Patient did use CPAP machine and did tolerate and sleep well Review of systems: Rest review of systems negative. Medications: Medications have been reviewed. Physical Exam Vital Signs: Temp Pulse Resp BP Pulse Ox 97.5 F 91 18 130/92 H 96 06/21/17 12:02 06/21/17 12:02 06/21/17 12:02 06/21/17 12:02 06/21/17 12:02 Intake & Output 06/20/17 06/21/17 06/22/17 06:59 06:59 06:59 Intake Total 765 1540 300 Output Total 1300 1800 Balance -535 -260 300 Weight 156.7 kg 156.6 kg 156.6 kg Exam: GENERAL: well-nourished and in no acute distress. Alert and oriented x3 HEAD: Atraumatic, normocephalic. EYES: Pupils equal round and reactive to light, extraocular movements intact, sclera anicteric, conjunctiva are normal. ENT: TMs normal, nares patent, oropharynx clear without exudates. Moist mucous membranes. No oral ulcerations or bleeding gums noted NECK: supple without lymphadenopathy. Trachea is central. No cervical or axillary lymphadenopathy noted. Carotids are 2+, JVD WNL LUNGS: Respiration seems nonlabored, no significant accessory muscle action noted. Breath sounds clear to auscultation bilaterally and equal noted. No wheezes rales or rhonchi noted. No significant dullness noted on percussion. CHEST: Palpation of the chest wall shows no significant chest wall tenderness. No other significant abnormalities noted. HEART: [place] [employer], No PSH, 1/6 MIKI aortic area, 1/6 camejo systolic murmur mitral area, no rubs, no gallops. ABDOMEN: Soft, no significant tenderness appreciated, normoactive bowel sounds. No guarding, no rebound. No rigidity noted . No masses appreciated. EXTREMITIES: Pedal pulses are 1-2+, no calf tenderness noted. No clubbing or cyanosis. 1+ pedal edema noted NEUROLOGICAL: Focused neurological exam showed no significant neurologic deficit. Normal speech, no focal weakness appreciated. PSYCH: Normal mood, normal affect. Judgment and insight within normal limits. SKIN: No significant ecchymosis, rash, ulcerations or signs of pruritus noted. MUSCULOSKELETAL EXAM: No significant joint swelling noted. Results Laboratory Results: 06/20/17 05:11 06/20/17 05:11 06/20/17 05:11 NT-Pro-B Natriuret Pep 376 Impressions: Chest X-Ray 06/19/17 12:59 IMPRESSION: Patchy increased density in the left lower lung field consistent with a patchy pneumonic infiltrate. Remaining lung cabral are clear. Other findings as noted above Assessment & Plan - Diagnosis (2) Essential (primary) hypertension Is this a current diagnosis for this admission?: Yes (3) Hyponatremia Is this a current diagnosis for this admission?: Yes (4) Morbid obesity with BMI of 40.0-44.9, adult Is this a current diagnosis for this admission?: Yes (5) Pneumonia Qualifiers: Pneumonia type: due to unspecified organism Laterality: left Lung location: lower lobe of lung Qualified Code(s): J18.1 - Lobar pneumonia, unspecified organism Is this a current diagnosis for this admission?: Yes (6) Congestive heart failure Qualifiers: Congestive heart failure type: unspecified congestive heart failure type Congestive heart failure chronicity: acute on chronic Qualified Code(s ): I50.9 - Heart failure, unspecified Is this a current diagnosis for this admission?: Yes (7) Sleep apnea syndrome Qualifiers: Sleep apnea type: unspecified type Qualified Code(s): G47.30 - Sleep apnea, unspecified Is this a current diagnosis for this admission?: Yes - Notes Notes: 2D echo results discussed. Patient questions answered. CPAP therapy tolerated by the patient but needed less pressure at 10 cm of water. Rhythm strips reviewed. Atrial fibrillation with RVR: Heart rate seems reasonably well controlled.. Based on [id number] score chronic anticoagulation is indicated this was explained to the patient. Patient is agreeable. Discussed a small increased risk of bleeding but on the balance benefits far exceeds the risk. Patient felt to be a satisfactory candidate for chronic anticoagulation. Patient has been started on Xarelto. Continue Cardizem beta-rosalie and diltiazem. Hypertension: Reasonably well controlled. Blood pressure goal in this patient is 135/85 or less. This was discussed with the patient. Currently blood pressure under reasonable control. Better medication for this patient are MEG inhibitor/ARB/beta rosalie etc. discussed side effects of uncontrolled hypertension and also severe hypotension. Obesity: Patient has been recommended to lose weight. Pneumonia: Chest x-ray reviewed and symptoms suggest left-sided pneumonia. Continue antibiotic therapy. Symptomatically patient is improving. Hyponatremia: Probably related to pneumonia, possible CHF. Currently is stable. CHF: Patient seems to have CHF by clinical exam. Most likely acute on chronic precipitated by atrial fibrillation and pneumonia. Recommend low-dose diuretic therapy. Have started patient on Lasix 20 mg p.o. daily. Feel that patient predominantly has diastolic and right-sided heart failure. BNP is normal but still feels patient has CHF. This is based on clinical exam and also chest x- ray findings. Sleep apnea syndrome: Discussed association of sleep apnea with atrial fibrillation and also CHF. Patient did not bring his CPAP machine. Have ordered nightly CPAP at 10 cm cm of water to be continued. Pacemaker in situ. Patient would need monitoring. Offered my services regarding this. Status post gastric bypass surgery: Discussed nutritional deficiencies associated with it. - Time Time with patient: 15-25 minutes - CODE STATUS was discussed, patient remains full code. Surrogate decision-maker unchanged. Multiple medical problems were addressed. More than 50% of the time spent coordinating care, discussing management plans with involved caregivers. Management plans discussed with involved personnels. Medical decision making was of moderate to high complexity , patient's has multiple comorbidities. Medications reviewed and adjusted accordingly: Yes
== END 2017-06-21 13:24 | disposition home or self-care (01) | DRG 308 ==
LOC: ER 12:52 → EH 15:39 → UNDOADMIN 15:39 → EH 15:50 → 3N 21:05
PROVIDERS: ADMIT Internal Medicine; ATTEND Internal Medicine
DX: I48.2 Chronic atrial fibrillation (principal); J18.1 Lobar pneumonia, unspecified organism; E87.1 Hypo-osmolality and hyponatremia; Z68.41 Body mass index [BMI] 40.0-44.9, adult; I11.0 Hypertensive heart disease with heart failure; I50.9 Heart failure, unspecified; E66.01 Morbid (severe) obesity due to excess calories; G47.30 Sleep apnea, unspecified; Z79.01 Long term (current) use of anticoagulants; Z79.899 Other long term (current) drug therapy; Z95.0 Presence of cardiac pacemaker; Z87.891 Personal history of nicotine dependence; Z98.84 Bariatric surgery status
CPT/HCPCS: 36415; 71010; 80053; 81001; 82550; 82553; 82803; 83036; 83605; 83880; 84484; 85025; 85610; 87040; 87070; 87086; 87205; 93005; 93010; 93306; 94660; 96365; 96375; 99291; J0696; J1160; J1650; J1956; J2930; J3490; J7620

== ENCOUNTER 2017-12-11 19:02 | Emergency (ER) | payer MEDICAID ==
[2017-12-11] MEDS ORDERED: ASPIRIN 81 MG TABLET, CHEWABLE PO ONE (20:12)
--- NOTE | 2017-12-11 20:18 | ER Document Report ---
ED Medical Screen (RME) - General Chief Complaint: Chest Pain Stated Complaint: CHEST PAIN Time Seen by Provider: 12/11/17 20:09 Mode of Arrival: Ambulatory Information source: Patient Notes: Pt is a 52 year old male who presents to the ER today for chest pain that started about 1.5 hours ago. He has a fib, a pacemaker, hx of stroke, no hx of [place]. denies any sob or nausea with this. he states the cp has been constant since it started, started in back and radiated around to center of chest. TRAVEL OUTSIDE OF THE [place] IN LAST 30 DAYS: No - Related Data Allergies/Adverse Reactions: cyclobenzaprine Allergy (Verified 06/19/17 13:25) Past Medical History - General Information source: Patient - Past Medical History Cardiac Medical History: Reports: Hx Atrial Fibrillation, Hx Congestive Heart Failure, Hx Hypertension Renal/ Medical History: Denies: Hx Peritoneal Dialysis Psychiatric Medical History: Denies: Hx Depression Past Surgical History: Reports: Hx Abdominal Surgery - gastric bypass Review of Systems - Review of Systems Cardiovascular: See HPI Physical Exam - Vital signs Vitals: Temp Pulse Resp BP Pulse Ox 98.4 F 64 18 160/107 H 96 12/11/17 19:40 12/11/17 19:40 12/11/17 19:40 12/11/17 19:40 12/11/17 19:40 - Notes Notes: General: NAD, smiling Course - Vital Signs Vital signs: Temp Pulse Resp BP Pulse Ox 98.4 F 64 18 160/107 H 96 12/11/17 19:40 12/11/17 19:40 12/11/17 19:40 12/11/17 19:40 12/11/17 19:40
--- NOTE | 2017-12-11 20:52 | RADIOLOGY REPORT (SQ) ---
EXAM DESCRIPTION: CHEST PA/LAT COMPLETED DATE/TIME: 12/11/2017 8:44 pm REASON FOR STUDY: chest pain COMPARISON: None. EXAM PARAMETERS: NUMBER OF VIEWS: two views TECHNIQUE: Digital Frontal and Lateral radiographic views of the chest acquired. RADIATION DOSE: NA LIMITATIONS: none FINDINGS: LUNGS AND PLEURA: No opacities, masses or pneumothorax. No pleural effusion. MEDIASTINUM AND HILAR STRUCTURES: No masses or contour abnormalities. HEART AND VASCULAR STRUCTURES: Heart normal size. No evidence for failure. BONES: No acute findings. HARDWARE: Pacemaker. OTHER: No other significant finding. IMPRESSION: NO SIGNIFICANT RADIOGRAPHIC FINDING IN THE CHEST. TECHNICAL DOCUMENTATION: JOB ID: [id number] [employer]- All Rights Reserved
[2017-12-11 20:59] LABS: ABSOLUTE BASOPHILS # (AUTO) 0.1 10^3/uL (0.0-0.2); ABSOLUTE EOSINOPHILS # (AUTO) 0.1 10^3/uL (0.0-0.6); ABSOLUTE LYMPHOCYTES (AUTO) 1.5 10^3/uL (0.5-4.7); ABSOLUTE MONOCYTES (AUTO) 0.9 10^3/uL (0.1-1.4); ABSOLUTE NEUT (AUTO) 11.8 10^3/uL (1.7-8.2); BASOPHILS % (AUTO) 0.6 % (0-2); EOSINOPHILS % (AUTO) 0.8 % (0-6); HEMATOCRIT 45.8 % (37.9-51.0); HEMOGLOBIN 15.5 g/dL (13.5-17.0); LYMPHOCYTES % (AUTO) 10.4 % (13-45); MEAN CORPUSCULAR HEMOGLOBIN 31.5 pg (27.0-33.4); MEAN CORPUSCULAR VOLUME 93 fl (80-97); MONOCYTES % (AUTO) 6.2 % (3-13); PLATELET COUNT 186 10^3/uL (150-450); RED BLOOD COUNT 4.93 10^6/uL (4.35-5.55); RED CELL DISTRIBUTION WIDTH 14.1 % (11.5-14.0); TOTAL CELLS COUNTED % (AUTO) 100 %; WHITE BLOOD COUNT 14.4 10^3/uL (4.0-10.5)
[2017-12-11 21:25] LABS: APPEARANCE,URINE TURBID; BILIRUBIN,URINE NEGATIVE (NEGATIVE); CALCIUM OXALATE CRYSTALS,URINE MODERATE /HPF; COLOR,URINE AMBER; GLUCOSE, URINE NEGATIVE (NEGATIVE); KETONES,URINE NEGATIVE (NEGATIVE); LEUKOCYTE ESTERASE,URINE NEGATIVE (NEGATIVE); NITRITE,URINE NEGATIVE (NEGATIVE); PROTEIN,URINE 100 mg/dL (NEGATIVE); URINE SPECIFIC GRAVITY 1.032
[2017-12-11 21:33] LABS: ALANINE AMINOTRANSFERASE 28 U/L (21-72); ALBUMIN 4.5 g/dL (3.5-5.0); ALKALINE PHOSPHATASE 70 U/L (38-126); ANION GAP 12 (5-19); ASPARTATE AMINO TRANSFERASE 55 U/L (17-59); BILIRUBIN,DIRECT 0.3 mg/dL (0.0-0.4); BILIRUBIN,TOTAL 1.1 mg/dL (0.2-1.3); BLOOD UREA NITROGEN 17 mg/dL (7-20); CALCIUM 9.9 mg/dL (8.4-10.2); CARBON DIOXIDE 26 mmol/L (22-30); CHLORIDE 106 mmol/L (98-107); CREATINE KINASE 42 U/L (55-170); GLUCOSE 116 mg/dL (75-110); POTASSIUM 4.2 mmol/L (3.6-5.0)
[2017-12-11 21:44] LABS: CREATINE KINASE MB 0.49 ng/mL (<4.55)
[2017-12-11 21:48] LABS: TROPONIN I < 0.012 ng/mL
--- NOTE | 2017-12-12 00:17 | ER Document Report ---
ED General - General Chief Complaint: Chest Pain Stated Complaint: CHEST PAIN Time Seen by Provider: 12/11/17 20:09 Mode of Arrival: Ambulatory Notes: Patient is a 52-year-old male presents with complaint of pain started in his back between his shoulder blades. Said this occurred why he was on the computer. Patient says pain then started to radiate a little bit to his chest. His pain is substernal. He says that chest pain has really only occurs when he takes a deep breath. He does not take a deep breath he does not have the pain. No difficulty breathing. Says pain is slowly improved on its own. No history of coronary disease but does have a history of atrial fibrillation and also has a pacemaker. When asked why he has a pacemaker he says "because I had a stroke. I cannot really get another reason for his pacemaker that makes sense other than his history of atrial fibrillation and may be bradycardic because of this. He is unsure what his baseline ejection fraction is. Denies any recent trauma or injuries. Him and his both mentioned that he does have a history of chronic recurrent back pain. He says at this time is different and that he developed some associated chest pain with it. No recent fevers or infections. No other complaints at this time. TRAVEL OUTSIDE OF THE [place] IN LAST 30 DAYS: No - Related Data Allergies/Adverse Reactions: cyclobenzaprine Allergy (Verified 06/19/17 13:25) Past Medical History - General Information source: Patient - Social History Smoking Status: Never Smoker Frequency of alcohol use: Occasional Drug Abuse: None Family History: Reviewed & Not Pertinent Patient has suicidal ideation: No Patient has homicidal ideation: No - Past Medical History Cardiac Medical History: Reports: Hx Atrial Fibrillation - TAKES XARELTO, Hx Congestive Heart Failure, Hx Hypertension Renal/ Medical History: Denies: Hx Peritoneal Dialysis Psychiatric Medical History: Denies: Hx Depression Past Surgical History: Reports: Hx Abdominal Surgery - gastric bypass Review of Systems - Review of Systems Notes: My Normal Review Basic REVIEW OF SYSTEMS: CONSTITUTIONAL : Denies fever, chills, or sweats. Denies recent illness. EENT: Denies eye, ear, throat, or mouth pain or symptoms. Denies nasal or sinus congestion. CARDIOVASCULAR: Some anterior upper chest pain. RESPIRATORY: Denies cough, cold, or chest congestion. Denies shortness of breath, difficulty breathing, or wheezing. GASTROINTESTINAL: Denies abdominal pain. Denies nausea, vomiting, or diarrhea. MUSCULOSKELETAL: Some back pain between shoulder blades. SKIN: Denies rash or skin lesions. HEMATOLOGIC : On blood thinning medications. NEUROLOGICAL: Denies altered mental status or loss of consciousness. Denies headache. Denies weakness or paralysis or loss of use of either side. Denies problems with gait or speech. Denies sensory or motor loss. ALL OTHER SYSTEMS REVIEWED AND NEGATIVE. Physical Exam - Vital signs Vitals: Temp Pulse Resp BP Pulse Ox 98.4 F 64 18 160/107 H 96 12/11/17 19:40 12/11/17 19:40 12/11/17 19:40 12/11/17 19:40 12/11/17 19:40 - Notes Notes: General Appearance: Well nourished, alert, cooperative, no acute distress, no obvious discomfort. Well-appearing. Vitals: reviewed, See vital signs table. Head: no swelling or tenderness to the head Eyes: PERRL, EOMI, Conjuctiva clear Mouth: No decreasd moisture Neck: Supple, no neck swelling. Lungs: No wheezing, No rales, No rhonci, No accessory muscle use, good air exchange bilaterally. Heart: Normal rate, Regular rythm, No murmur, no rub Abdomen: Normal BS, soft, No rigidity, No abdominal tenderness, No guarding, no rebound, no abdominal masses, no organomegaly Back: No reproducible pain to palpation of the back. No redness or swelling over the back. Extremities: strength 5/5 in all extremities, good pulses in all extremities, no swelling or tenderness in the extremities, no edema. Skin: warm, dry, appropriate color, no rash Neuro: speech clear, oriented x 3, normal affect, responds appropriately to questions. Course - Re-evaluation Re-evalutation: 12/12/17 03:48 Patient is feeling improved. Patient looks well. He still has a little of hypertension but he also missed his nighttime dosages of his hypertensive medications as well as metoprolol. He is actually taking them now. Patient says he does feel improved. He still has just a little bit of chest pain but is again only when he takes a deep breath. His heart score is 3. I did discuss this with him and his . I discussed with him what that means with his heart score is 3 and that this means that he has approximately 1-1/2% chance of a cardiac event in the next 6 weeks. I informed him that despite this I am still happy to keep in the hospital if he feels uncomfortable going home at this time. Him and his did discuss this and he says he feels better and would like to go home. He agrees to follow-up closely with his loin trimmer. He also agrees to return to ER immediately if he has recurrent worsening chest pain, difficulty breathing, or if he feels unwell. Patient will be discharged home and he agrees with plan. Dictation of this chart was performed using voice recognition software; therefore, there may be some unintended grammatical errors. 12/12/17 03:49 - Vital Signs Vital signs: Temp Pulse Resp BP Pulse Ox 98.4 F 64 24 H 156/106 H 98 12/11/17 19:40 12/11/17 19:40 12/12/17 03:01 12/12/17 03:01 12/12/17 03:01 - Laboratory Result Diagrams: 12/11/17 20:38 12/11/17 20:38 Laboratory results interpreted by me: 12/11/17 12/11/17 12/11/17 19:10 20:38 20:38 WBC 14.4 H RDW 14.1 H Seg Neutrophils % 82.0 H Lymphocytes % 10.4 L Absolute Neutrophils 11.8 H Glucose 116 H Creatine Kinase 42 L Urine Protein 100 H Urine Urobilinogen 4.0 H Urine Ascorbic Acid 20 H - EKG Interpretation by Me Additional EKG results interpreted by me: 12/12/17 00:17 EKG is reviewed and interpreted by me. EKG shows atrial fibrillation with rate of [address] segment elevation or depression. No ischemic T-wave inversions. QRS duration and QTc intervals are within normal range. Old EKG for comparison is from June 19, 2017. 12/12/17 01:03 EKG #2 is reviewed and interpreted by me. EKG shows A. fib with rate of [address] segment elevation or depression. No ischemic T-wave inversions. QRS duration is within normal range. QT interval is prolonged. Patient does have a single PVC. Discharge - Discharge Clinical Impression: Chest pain Qualifiers: Chest pain type: unspecified Qualified Code(s): R07.9 - Chest pain, unspecified Atrial fibrillation Qualifiers: Atrial fibrillation type: chronic Qualified Code(s): I48.2 - Chronic atrial fibrillation Back pain Qualifiers: Back pain location: thoracic back pain Chronicity: acute Back pain laterality: midline Qualified Code(s): M54.6 - Pain in thoracic spine Condition: Good Additional Instructions: The exact cause of your back and chest pain is not 100% clear at this time. We have performed tests looking at your heart which currently do not show evidence of a heart attack. We also performed a CT scan of your chest looking at your aorta and looking for evidence of blood clots in your lungs. This test was normal as well. Despite these normal tests it is still very important you follow up closely with your heart doctor for reevaluation. please call his office this morning to make a follow up appointment within the next several days. Please return to the ER immediately if you have worsening recurring pain, difficulty breathing, fevers, or if you feel unwell. Forms: Return to Work Referrals: CHASITY GRAF MD [Primary Care Provider] - Follow up in 3-5 days
[2017-12-12] MEDS ORDERED: NORMAL SALINE 1000 ML 1,000 ML IV ONE (00:24)
--- NOTE | 2017-12-12 02:28 | RADIOLOGY REPORT (SQ) ---
EXAM DESCRIPTION: CTA of the chest per PE protocol with contrast. CLINICAL HISTORY: chest pain, back pain COMPARISON: None Available. TECHNIQUE: CTA of the chest obtained following the uncomplicated intravenous administration of 100 mL Isovue-370. 3-D/MIP reformatted images of the chest available for evaluation. FINDINGS: Chest: Mediastinal windows demonstrate an excellent contrast bolus. No pulmonary embolus identified. Left sided single lead pacemaker. Visualized thyroid gland is unremarkable. Great vessels have normal anatomic configuration. No cardiomegaly, coronary artery atherosclerosis, or significant pericardial effusion. No abnormalities of the esophagus. Scattered mediastinal lymph nodes are not enlarged by CT criteria. Lung windows demonstrate no consolidation, pneumothorax, or pleural effusion. No abnormalities of the visualized trachea or airways. Limited images of the upper abdomen demonstrate no abnormalities of the visualized liver, spleen, adrenal glands, or kidneys. Postoperative changes of the stomach. Fatty infiltration of the pancreas. Prior cholecystectomy. No destructive osseous lesions. Degenerative change of the spine. DLP: 1928.35 mGycm IMPRESSION: 1. No pulmonary embolus identified. This exam was performed according to our departmental dose-optimization program, which includes automated exposure control, adjustment of the mA and/or kV according to patient size and/or use of iterative reconstruction technique.
[2017-12-12 04:17] VITALS: BP 152/107
--- NOTE | 2017-12-12 08:09 | EKG REPORT ---
SEVERITY:- ABNORMAL ECG - ATRIAL FIBRILLATION, V-RATE 77-123 BORDERLINE T WAVE ABNORMALITIES BORDERLINE PROLONGED QT INTERVAL : Confirmed by: Rsuty De Luna MD 12-Dec-2017 08:08:43
--- NOTE | 2017-12-12 08:09 | EKG REPORT ---
SEVERITY:- ABNORMAL ECG - ATRIAL FIBRILLATION, V-RATE 66-108 BORDERLINE T WAVE ABNORMALITIES PVC : Confirmed by: Rusty De Luna MD 12-Dec-2017 08:09:05
== END 2017-12-12 04:18 | disposition home or self-care (01) ==
LOC: ER 19:02
DX: M54.6 Pain in thoracic spine (principal); R07.1 Chest pain on breathing; I48.2 Chronic atrial fibrillation; I10 Essential (primary) hypertension; Z79.01 Long term (current) use of anticoagulants; Z79.899 Other long term (current) drug therapy; Z95.0 Presence of cardiac pacemaker; Z88.8 Allergy status to other drugs, medicaments and biological substances; Z98.84 Bariatric surgery status
CPT/HCPCS: 36415; 71046; 71275; 80053; 81001; 82550; 82553; 84484; 85025; 93005; 93010; 99285

== ENCOUNTER 2018-04-30 03:14 | Emergency (ER) | payer MEDICAID ==
[2018-04-30 03:59] LABS: ABSOLUTE BASOPHILS # (AUTO) 0.1 10^3/uL (0.0-0.2); ABSOLUTE EOSINOPHILS # (AUTO) 0.2 10^3/uL (0.0-0.6); ABSOLUTE LYMPHOCYTES (AUTO) 2.8 10^3/uL (0.5-4.7); ABSOLUTE MONOCYTES (AUTO) 0.7 10^3/uL (0.1-1.4); ABSOLUTE NEUT (AUTO) 6.8 10^3/uL (1.7-8.2); BASOPHILS % (AUTO) 0.7 % (0-2); HEMATOCRIT 43.8 % (37.9-51.0); HEMOGLOBIN 15.3 g/dL (13.5-17.0); LYMPHOCYTES % (AUTO) 26.1 % (13-45); MEAN CORPUSCULAR HEMOGLOBIN 32.6 pg (27.0-33.4); MEAN CORPUSCULAR VOLUME 93 fl (80-97); MONOCYTES % (AUTO) 7.1 % (3-13); PLATELET COUNT 205 10^3/uL (150-450); RED BLOOD COUNT 4.69 10^6/uL (4.35-5.55); RED CELL DISTRIBUTION WIDTH 13.5 % (11.5-14.0); SEGMENTED NEUTROPHILS % (AUTO) 64.1 % (42-78); TOTAL CELLS COUNTED % (AUTO) 100 %; WHITE BLOOD COUNT 10.6 10^3/uL (4.0-10.5)
[2018-04-30] MEDS ORDERED: METOPROLOL TARTRATE 100 MG TABLET PO ONE (03:59)
[2018-04-30] MEDS ORDERED: DILTIAZEM HCL 60 MG TABLET PO ONE (03:59)
--- NOTE | 2018-04-30 04:07 | RADIOLOGY REPORT (SQ) ---
EXAM DESCRIPTION: Single view of the chest CLINICAL HISTORY: Chest pain COMPARISON: 06/19/2017 FINDINGS: Single frontal view of the chest. Left-sided pacemaker. Cardiomegaly. Tortuosity of the thoracic aorta. No consolidation, pneumothorax, or pleural effusion. No displaced rib fractures identified. Elevation of the right hemidiaphragm is stable. Low lung volumes. Upper abdominal soft tissues are unremarkable. IMPRESSION: 1. No acute pulmonary process identified. Cardiomegaly.
[2018-04-30 04:12] LABS: ALANINE AMINOTRANSFERASE 30 U/L (21-72); ALBUMIN 4.2 g/dL (3.5-5.0); ALKALINE PHOSPHATASE 66 U/L (38-126); ANION GAP 13 (5-19); ASPARTATE AMINO TRANSFERASE 39 U/L (17-59); BILIRUBIN,DIRECT 0.3 mg/dL (0.0-0.4); BILIRUBIN,TOTAL 0.9 mg/dL (0.2-1.3); BLOOD UREA NITROGEN 13 mg/dL (7-20); CARBON DIOXIDE 22 mmol/L (22-30); CHLORIDE 103 mmol/L (98-107); CREATINE KINASE 69 U/L (55-170); GLUCOSE 110 mg/dL (75-110); POTASSIUM 4.2 mmol/L (3.6-5.0); SODIUM 137.8 mmol/L (137-145); TOTAL PROTEIN 7.3 g/dL (6.3-8.2)
[2018-04-30 04:15] LABS: INTERNATIONAL RATION (INR) 1.02; PARTIAL THROMBOPLASTIN TIME 28.2 SEC (23.5-35.8); PROTHROMBIN TIME 13.9 SEC (11.4-15.4)
--- NOTE | 2018-04-30 04:19 | ER Document Report ---
ED Cardiac - General Chief Complaint: Chest Pain Stated Complaint: PACEMAKER ISSUES Time Seen by Provider: 04/30/18 03:58 Notes: The patient is a 53-year-old male, past medical history atrial fibrillation with RVR (on metorolol, diltiazem and Xarelto), pacemaker for bradycardia, hypertension, diabetes, presents after he felt his pacemaker firing earlier today. He said these were very brief episode. He is no longer having any of these symptoms. Patient had a few beers tonight. She has not taken his diltiazem or metoprolol for the past day, since he is out of the medications. He denies syncope, nausea, vomiting, chest pain, shortness of breath, increased leg swelling, fevers or cough. TRAVEL OUTSIDE OF THE [place] IN LAST 30 DAYS: No - Related Data Allergies/Adverse Reactions: cyclobenzaprine Allergy (Verified 06/19/17 13:25) Past Medical History - General Information source: Patient - Social History Smoking Status: Never Smoker Chew tobacco use (# tins/day): No Frequency of alcohol use: Social Drug Abuse: None Family History: Reviewed & Not Pertinent Patient has suicidal ideation: No Patient has homicidal ideation: No - Past Medical History Cardiac Medical History: Reports: Hx Atrial Fibrillation - TAKES XARELTO, Hx Congestive Heart Failure, Hx Hypertension Renal/ Medical History: Denies: Hx Peritoneal Dialysis Psychiatric Medical History: Denies: Hx Depression Past Surgical History: Reports: Hx Abdominal Surgery - gastric bypass Review of Systems - Review of Systems Notes: REVIEW OF SYSTEMS: CONSTITUTIONAL: -fevers, -chills EENT: -eye pain, -difficulty swallowing, -nasal congestion CARDIOVASCULAR: -chest pain, -syncope. RESPIRATORY: -cough, -SOB GASTROINTESTINAL: -abdominal pain, -nausea, -vomiting, -diarrhea GENITOURINARY: -dysuria, -hematuria MUSCULOSKELETAL: -back pain, -neck pain SKIN: -rash or skin lesions. HEMATOLOGIC: -easy bruising or bleeding. LYMPHATIC: -swollen, enlarged glands. NEUROLOGICAL: -altered mental status or loss of consciousness, -headache, - neurologic symptoms PSYCHIATRIC: -anxiety, -depression. ALL OTHER SYSTEMS REVIEWED AND NEGATIVE. Physical Exam - Vital signs Vitals: Temp Pulse Resp BP Pulse Ox 98.4 F 121 H 19 163/125 H 97 04/30/18 03:27 04/30/18 03:27 04/30/18 03:27 04/30/18 03:27 04/30/18 03:27 - Notes Notes: PHYSICAL EXAMINATION: GENERAL: Well-appearing, well-nourished and in no acute distress. HEAD: Atraumatic, normocephalic. EYES: Pupils equal round and reactive to light, extraocular movements intact, sclera anicteric, conjunctiva are normal. ENT: nares patent, oropharynx clear without exudates. Moist mucous membranes. NECK: Normal range of motion, supple without lymphadenopathy LUNGS: Breath sounds clear to auscultation bilaterally and equal. No wheezes rales or rhonchi. HEART: Irregularly irregular rhythm. No tenderness or erythema over left chest wall pacemaker. ABDOMEN: Soft, nontender, normoactive bowel sounds. No guarding, no rebound. No masses appreciated. EXTREMITIES: Normal range of motion, no pitting or edema. No cyanosis. NEUROLOGICAL: Cranial nerves grossly intact. Normal speech, normal gait. Normal sensory and motor exams. PSYCH: Normal mood, normal affect. SKIN: Warm, Dry, normal turgor, no rashes or lesions noted. Course - Re-evaluation Re-evalutation: Patient appears very well and is in no acute distress. ETOH is 215. EKG shows atrial fibrillation with RVR, but patient has not taken his metoprolol or diltiazem for several days. He is asymptomatic at this time. Provided him with his doses of metorpolol and diltiazem and his heart rate improved from 120s down to 70s. Pacemaker interrogation performed and it shows brief episodes of tachycardia. 04/30/18 05:[address] Linares, his client service manager, to discuss case and left a message (Dr. Linares is not belt conveyor drier, but a courtesy page for his patient). 04/30/18 05:[address] Linares and left message. Patient remains asymptomatic. While on the monitor, he had no overdrive pacing and his HR improved to the 70's. Patient said he has had similar symptoms before and his pacemaker was adjusted in Dr. Linares's office as an outpatient by a pacemaker rep. Due to patient's well appearance, will discharge patient home with outpatient follow-up in Dr. Linares's office. Given very strict return precautions and he understands. Provided him with a brief refill of his metoprolol and diltiazem until he can see his client service manager, Dr. Linares, or his primary care physician. - Vital Signs Vital signs: Temp Pulse Resp BP Pulse Ox 98.4 F 121 H 19 137/105 H 96 04/30/18 03:27 04/30/18 03:27 04/30/18 05:01 04/30/18 05:01 04/30/18 05:01 - Laboratory Result Diagrams: 04/30/18 03:48 04/30/18 03:48 Laboratory results interpreted by me: 04/30/18 03:48 WBC 10.6 H - Diagnostic Test Radiology reviewed: Image reviewed, Reports reviewed Radiology results interpreted by me: CXR: NAD - EKG Interpretation by Me EKG shows normal: Sinus rhythm, [place], Intervals, QRS Complexes, ST-T Waves Rate: Tachycardia Rhythm: A.Fib Discharge - Discharge Clinical Impression: Atrial fibrillation with RVR Condition: Stable Disposition: HOME, SELF-CARE Additional Instructions: Take your metoprolol and diltiazem as directed and follow-up with your Sales And Retail Management Recruiter. Atrial Fibrillation Atrial fibrillation is an abnormal heart rhythm, caused by irregular electrical circuits in the upper heart chamber. It can be caused by heart valve disease, hardening of the arteries, or metabolic problems such as thyroid disease, or may occur without a clear cause. Atrial fibrillation may occur only occasionally, or may be chronic. Atrial fibrillation often results in a very fast heart rate, with palpitations, lightheadedness, and shortness of breath. Treatment is to slow the abnormally fast rate, and to convert the rhythm back to normal, if possible. Many patients stay in atrial fibrillation for years without symptoms or complications. Your doctor will decide whether you can be converted back to a normal heart rhythm. Contact the doctor or emergency medical system at once if you develop chest pain, shortness of breath, or severe lightheadedness, or if you develop any disturbance of consciousness, problems with speech, or localized weakness. Prescriptions: Diltiazem HCl 60 mg PO BID 7 Days tablet Metoprolol Tartrate [Lopressor] 100 mg PO BID 7 Days tablet Forms: Elevated Blood Pressure Referrals: DEV LINARES MD [Primary Care Provider] - Follow up as needed
[2018-04-30 04:24] LABS: CREATINE KINASE MB 1.33 ng/mL (<4.55); TROPONIN I 0.012 ng/mL
[2018-04-30 05:49] VITALS: BP 121/68
--- NOTE | 2018-04-30 10:19 | EKG REPORT ---
SEVERITY:- ABNORMAL ECG - ATRIAL FIBRILLATION, V-RATE 87-163 BORDERLINE LEFT AXIS DEVIATION BORDERLINE T ABNORMALITIES, ANT-LAT LEADS BORDERLINE PROLONGED QT INTERVAL : Confirmed by: Manoj Salmeron 30-Apr-2018 10:18:58
== END 2018-04-30 05:50 | disposition home or self-care (01) ==
LOC: ER 03:14
DX: I48.91 Unspecified atrial fibrillation (principal); R07.9 Chest pain, unspecified; Y90.7 Blood alcohol level of 200-239 mg/100 ml; I50.9 Heart failure, unspecified; I11.0 Hypertensive heart disease with heart failure; Z95.0 Presence of cardiac pacemaker; Z98.84 Bariatric surgery status
CPT/HCPCS: 93005; 99284; 36415; 82553; 80307; 82550; 85025; 85610; 85730; 80053; 84484; 71045; 93010; J3490 ×2

== ENCOUNTER 2018-05-18 04:02 | Emergency (ER) | payer MEDICAID ==
[2018-05-18] MEDS ORDERED: HYDROCODONE/ACETAMINOPHEN 5-325 MG TABLET PO ONE (08:33)
--- NOTE | 2018-05-18 08:37 | ER Document Report ---
HPI - HPI Patient complains to provider of: Bilateral knee pain Onset: Other - 2 weeks Onset/Duration: Persistent Quality of pain: Achy Pain Level: 3 Context: Patient presents complaining of bilateral knee pain for the past 2 weeks. Patient denies any injury. Patient does report a history of arthritis. Patient also complains of multiple bites to bilateral lower extremities. Patient denies any fever. Associated Symptoms: Other - Bilateral knee pain. denies: Fever Exacerbated by: Movement, Walking Relieved by: Denies Similar symptoms previously: Yes Recently seen / treated by doctor: No - ROS ROS below otherwise negative: Yes Systems Reviewed and Negative: Yes All other systems reviewed and negative - CONSTITUTIONAL Constitutional: DENIES: Fever - NEURO Neurology: DENIES: Headache - MUSCULOSKELETAL Musculoskeletal: REPORTS: Extremity pain - bilat knees. DENIES: Swelling - DERM Skin Color: Normal Notes: Insect bite to bilateral lower extremities Past Medical History - General Information source: Patient - Social History Smoking Status: Never Smoker Frequency of alcohol use: None Drug Abuse: None Occupation: None Lives with: Family Family History: Reviewed & Not Pertinent Patient has suicidal ideation: No Patient has homicidal ideation: No - Past Medical History Cardiac Medical History: Reports: Hx Atrial Fibrillation - TAKES XARELTO, Hx Congestive Heart Failure, Hx Hypertension Renal/ Medical History: Denies: Hx Peritoneal Dialysis Psychiatric Medical History: Denies: Hx Depression Past Surgical History: Reports: Hx Abdominal Surgery - gastric bypass Vertical Provider Document - CONSTITUTIONAL Agree With Documented VS: Yes Exam Limitations: No Limitations General Appearance: WD/WN, No Apparent Distress - INFECTION CONTROL TRAVEL OUTSIDE OF THE [place] IN LAST 30 DAYS: No - HEENT HEENT: Atraumatic, Normal ENT Exam, Normocephalic - NECK Neck: Normal Inspection, Supple - RESPIRATORY Respiratory: Breath Sounds Normal, No Respiratory Distress - CARDIOVASCULAR Cardiovascular: Regular Rate, Regular Rhythm Pulses: Normal: Dorsalis pedis - MUSCULOSKELETAL/EXTREMETIES Musculoskeletal/Extremeties: MAEW, FROM, Tender - Patient with generalized tenderness to bilateral knees. Normal skin color and temperature overlying the joints. No laxity with varus or valgus maneuvers., No Edema - NEURO Level of Consciousness: Awake, Alert, Appropriate Motor/Sensory: No Motor Deficit - DERM Integumentary: Warm, Dry Notes: Patient with numerous erythematous scabbed lesion to bilateral lower extremities consistent with history of ant bite, no surrounding erythema concerning for cellulitis Course - Re-evaluation Re-evalutation: 05/18/18 08:35 Patient with known history of bilateral knee arthritis. Patient is morbidly obese. Patient with multiple insect bites to bilateral lower extremity. No concern for cellulitis or lymphangitis. Patient encouraged to wear insect repellent and avoid scratching at skin lesions. - Vital Signs Vital signs: Temp Pulse Resp BP Pulse Ox 97.3 F 91 17 154/110 H 98 05/18/18 07:08 05/18/18 07:08 05/18/18 07:08 05/18/18 07:08 05/18/18 07:08 Discharge - Discharge Clinical Impression: Arthritis Bilateral knee pain Qualifiers: Chronicity: unspecified Qualified Code(s): M25.561 - Pain in right knee Insect bite Qualifiers: Encounter type: initial encounter Qualified Code(s): W57.XXXA - Bitten or stung by nonvenomous insect and other nonvenomous arthropods, initial encounter Condition: Stable Disposition: HOME, SELF-CARE Instructions: Mansoor Wrap ([facility]), Arthritis ([facility]), Insect Bites ([facility]), Oral Narcotic Medication ([facility]), Topical Steroid Cream or Ointment ([facility]) Additional Instructions: Return immediately for any new or worsening symptoms Followup with your primary care provider, call tomorrow to make a followup appointment Wear insect repellent when outside, avoid scratching at insect bites Follow-up with orthopedic doctor for further evaluation of arthritic knee pain Prescriptions: Hydrocodone/Acetaminophen [[place] 5-325 Tablet] 1 each PO Q6 PRN #12 tablet PRN Reason: Triamcinolone Acetonide [Aristocort 0.1% Cream] 1 applic TP TID #60 gm Forms: Parent Work Note Referrals: CHASITY GRAF MD [Primary Care Provider] - Follow up as needed [facility] [Provider Group] - Follow up as needed
[2018-05-18 09:02] VITALS: BP 158/101
== END 2018-05-18 09:01 | disposition home or self-care (01) ==
LOC: ER 04:02
DX: M25.562 Pain in left knee (principal); M25.561 Pain in right knee; E66.01 Morbid (severe) obesity due to excess calories; S80.862A Insect bite (nonvenomous), left lower leg, initial encounter; S80.861A Insect bite (nonvenomous), right lower leg, initial encounter; W57.XXXA Bitten or stung by nonvenomous insect and other nonvenomous arthropods, initial encounter; M19.90 Unspecified osteoarthritis, unspecified site; I48.91 Unspecified atrial fibrillation; I50.9 Heart failure, unspecified; I11.0 Hypertensive heart disease with heart failure; Z79.02 Long term (current) use of antithrombotics/antiplatelets; Z98.84 Bariatric surgery status
CPT/HCPCS: 99283